=== PATIENT | male | born 1980 | race Caucasian/White ===

== ENCOUNTER 2023-05-11 17:46 | Emergency (ER) | payer BC ==
[~2023-05-11] VITALS: Ht 180.3 cm; Wt 164.1 kg
[2023-05-11 19:02] LABS: BASO # 0.04 K/mm3 (0.02-0.10); EOS # 0.08 K/mm3 (0.04-0.40); EOS % 0.5 % (0.0-4.0); HEMATOCRIT 38.9 % (42.0-52.0); HEMOGLOBIN 12.8 g/dL (13.5-18.0); MEAN CELL VOLUME 88 fl (78-100); MEAN CORPUSCULAR HEMOGLOBIN 29 pg (27-31); MEAN CORPUSCULAR HGB CONC 33 g/dL (33-37); MEAN PLATELET VOLUME 9.7 fl (7.4-10.4); MONO # 0.87 K/mm3 (0.20-0.80); NEU # 12.29 K/mm3 (1.40-6.50); PLATELET COUNT 331 K/mm3 (130-400); RED CELL DISTRIBUTION WIDTH 13.5 % (11.5-14.5); WHITE BLOOD COUNT 15.5 K/mm3 (4.8-10.8)
[2023-05-11 19:07] LABS: ALBUMIN 4.4 g/dL (3.5-5.0); POTASSIUM 3.6 mmol/L (3.5-5.1)
[2023-05-11 19:08] LABS: CALCIUM 10.1 mg/dL (8.3-10.5)
[2023-05-11 19:09] LABS: TOTAL PROTEIN 8.2 g/dL (6.4-8.3)
[2023-05-11 19:11] LABS: TOTAL BILIRUBIN 0.4 mg/dL (0.2-1.2)
[2023-05-11 21:38] LABS: URINE APPEARANCE HAZY; URINE BILIRUBIN NEGATIVE (NEGATIVE); URINE BLOOD 250 ery/uL (NEGATIVE); URINE COLOR YELLOW; URINE GLUCOSE NEGATIVE (NEGATIVE); URINE KETONE NEGATIVE (NEGATIVE); URINE LEUKOCYTE ESTERASE TRACE (NEGATIVE); URINE NITRATE NEGATIVE (NEGATIVE); URINE PROTEIN(semi-quant) TRACE (NEGATIVE); URINE UROBILINOGEN NORMAL (NORMAL)
[2023-05-11 21:39] LABS: URINE MUCUS PRESENT (NOT PRESENT)
[2023-05-11 22:45] VITALS: BP 136/83
== END 2023-05-11 22:45 | disposition home or self-care (01) ==
LOC: ED 17:46
PROVIDERS: Physician Assistant
DX: N20.0 Calculus of kidney (principal); Z28.310 Unvaccinated for COVID-19
CPT/HCPCS: J3010; J7030